=== PATIENT | female | born 2005 | race Caucasian/White ===

== ENCOUNTER 2023-01-06 22:57 | Observation (INO) | payer OTHER ==
[2023-01-07] MEDS ORDERED: hydrALAZINE 20 MG/ML VIAL SLOW IVP PRN (00:34)
[2023-01-07] MEDS ORDERED: Ventolin HFA Inhaler 60 PUFF INHALER INH PRN (00:40)
[2023-01-07 01:36] VITALS: BMI 41.6
[2023-01-07 06:45] LABS: Hemoglobin 12.9 g/dL (12.0-15.5); Mean Corpuscular HGB CONC 32.2 g/dL (32.0-36.0); Mean Corpuscular Hemoglobin 25.5 pg (27.0-33.0); Mean Corpuscular Volume 79.2 fl (81.6-98.3); Mean Platelet Volume 9.2 fl (7.4-10.4); Platelet Count 316 10x3/uL (150-450); RBC Distribution Width 15.4 % (11.5-14.5); Red Blood Cell (RBC) Count 5.06 10x6/uL (3.90-5.03); White Blood Cell (WBC) Count 9.6 10x3/uL (3.5-10.5)
[2023-01-07 07:37] VITALS: BP 131/71; TEMP 97.7
[2023-01-07] MEDS ORDERED: Simethicone Chewable 80 MG TAB PO PRN (09:37)
[2023-01-07 12:10] LABS: #Eosinphils 0.4 10x3/uL (0.0-0.5); #Monocytes 0.7 10x3/uL (0.0-1.1); #Neutrophils 4.7 10x3/uL (1.5-8.4); %Basophils 0.4 % (0.0-2.0); %Lymphocytes 28.9 % (18.0-47.0); %Monocytes 8.2 % (0.0-10.0); %Neutrophils 57.3 % (40.0-75.0); Hemoglobin 12.6 g/dL (12.0-15.5); Mean Corpuscular Hemoglobin 25.1 pg (27.0-33.0); Mean Corpuscular Volume 78.6 fl (81.6-98.3); Mean Platelet Volume 9.5 fl (7.4-10.4); Platelet Count 307 10x3/uL (150-450); RBC Distribution Width 15.2 % (11.5-14.5); Red Blood Cell (RBC) Count 5.01 10x6/uL (3.90-5.03); White Blood Cell (WBC) Count 8.2 10x3/uL (3.5-10.5)
== END 2023-01-07 13:07 | disposition home or self-care (01) ==
LOC: UNDOADMIN 23:57 → CSHPP 23:57 → INTOOBSV 01-07 00:34 → CSHPP 01-07 00:34
PROVIDERS: ADMIT Obstetrics & Gynecology; ATTEND Obstetrics & Gynecology
DX: O00.91 Unspecified ectopic pregnancy with intrauterine pregnancy (principal); O99.511 Diseases of the respiratory system complicating pregnancy, first trimester; J45.909 Unspecified asthma, uncomplicated; O9A.211 Injury, poisoning and certain other consequences of external causes complicating pregnancy, first trimester; S90.859A Superficial foreign body, unspecified foot, initial encounter; Z3A.08 8 weeks gestation of pregnancy; X58.XXXA Exposure to other specified factors, initial encounter
CPT/HCPCS: 36415; 76856; 80053; 81001; 83690; 84702; 84703; 85025; 85027; 87086; G0378

== ENCOUNTER 2023-04-24 04:27 | Inpatient (IN) | payer OTHER, SELFPAY ==
[2023-04-24] MEDS ORDERED: Acetaminophen 500 MG TAB ONE (04:48)
[2023-04-24 04:58] LABS: #Eosinphils 0.2 10x3/uL (0.0-0.5); #Neutrophils 13.4 10x3/uL (1.5-8.4); %Basophils 0.2 % (0.0-2.0); %Lymphocytes 8.1 % (18.0-47.0); %Monocytes 6.3 % (0.0-10.0); Hematocrit 40.5 % (34.9-44.5); Hemoglobin 13.1 g/dL (12.0-15.5); Mean Corpuscular HGB CONC 32.3 g/dL (32.0-36.0); Mean Corpuscular Hemoglobin 25.6 pg (27.0-33.0); Mean Corpuscular Volume 79.3 fl (81.6-98.3); Mean Platelet Volume 9.8 fl (7.4-10.4); Platelet Count 258 10x3/uL (150-450); RBC Distribution Width 13.2 % (11.5-14.5); Red Blood Cell (RBC) Count 5.11 10x6/uL (3.90-5.03); White Blood Cell (WBC) Count 15.9 10x3/uL (3.5-10.5)
[2023-04-24 05:05] LABS: BHCG - Serum Negative (NEGATIVE); Pregs Control Background? CLEAR/WHITE (CLR/WHITE); Pregs Control Bar Appear? YES (CONTROL BAR)
[2023-04-24] MEDS ORDERED: cefTRIAXone (ROCEPHIN) 1 GM VIAL ONE (05:08)
[2023-04-24 05:10] LABS: ALT (SGPT) 22 U/L (8-55); AST (SGOT) 20 U/L (5-34); Albumin 4.3 g/dL (3.5-5.0); Alkaline Phosphatase 62 U/L (40-100); Anion Gap 16 mmol/L (10-20); BUN (Urea Nitrogen) 11 mg/dL (7.0-18.7); Bilirubin, Total 0.7 mg/dL (0.2-1.2); Calc. Creatinine Clearance 0 mL/min (70-130); Calcium 8.6 mg/dL (7.8-10.44); Carbon Dioxide 22 mmol/L (22-29); Chloride 105 mmol/L (98-107); Estimated GFR 101; Globulin 2.8 g/dL (2.4-3.5); Glucose 132 mg/dL (70-105); Potassium 3.8 mmol/L (3.5-5.1); Protein, Total 7.1 g/dL (6.0-8.3); Sodium 139 mmol/L (136-145)
[2023-04-24 06:34] LABS: Bilirubin Neg (Negative); Blood, Urine 10 (Negative); Clarity Clear (Clear); Glucose, Urine (Dipstick) Normal (Negative); Ketone, Urine 5 mg/dL (Negative); Leukocyte Negative (Negative); Nitrite Negative (Negative); Protein, Urine (Dipstick) 15 mg/dl (Neg-Trace); Urobilinogen Normal mg/dL (Less than 2)
[2023-04-24 06:55] LABS: Bacteria/HPF None Seen HPF (None Seen); CAUTI Indications for Culture Fever or rigors; RBC/HPF 0-3 HPF (0-3); Squamous Epithelial 0-3 HPF (0-3); Urine Culture Reflex No No; WBC/HPF None Seen HPF (0-3)
[2023-04-24 07:09] LABS: SARS-CoV-2 NAA Rapid Test Not Detected (NotDetected)
[2023-04-24 07:53] LABS: Lactic Acid 3.4 mmol/L (0.5-2.2)
[2023-04-24] MEDS ORDERED: Ipratropium/Albuterol 3 ML NEB ONE ×5 (08:25→19:36)
[2023-04-24] MEDS ORDERED: Magnesium 2 GM/50 ML(in water) 2 GM in Premix Bag 1 BAG IVPB SCH (08:30)
[2023-04-24] MEDS ORDERED: Magnesium 2 GM/50 ML BAG (IN WATER) ONE (08:30)
[2023-04-24] MEDS ORDERED: Senokot S 8.6-50 MG TAB PO PRN (08:33)
[2023-04-24] MEDS ORDERED: Acetaminophen 325 MG TAB PO PRN (08:33)
[2023-04-24] MEDS ORDERED: Ipratropium/Albuterol 3 ML NEB NEB PRN ×4 (08:38→11:40)
[2023-04-24] MEDS ORDERED: methylPREDNISolone Sod Succ 40 MG VIAL ONE ×3 (08:43→21:02)
[2023-04-24] MEDS ORDERED: Ipratropium/Albuterol 3 ML NEB NEB SCH (09:00)
[2023-04-24] MEDS ORDERED: methylPREDNISolone Sod Succ/PF 125 MG/2 ML VIAL IVP SCH ×3 (09:00→09:15)
[2023-04-24] MEDS ORDERED: Azithromycin 250 MG TAB PO SCH (09:45)
[2023-04-24] MEDS: Sodium Chloride 0.9% 1,000 ML IV SCH ×3 (09:45→23:59)
[2023-04-24] MEDS: Ipratropium/Albuterol 3 ML NEB IPPB SCH ×4 (11:51→22:38)
[2023-04-24] MEDS ORDERED: Azithromycin 250 MG TAB ONE (13:22)
[2023-04-24] MEDS ORDERED: Sodium Chloride 0.9% 1,000 ML IV SCH (13:45)
[2023-04-24 15:46] LABS: Lactic Acid 5.1 mmol/L (0.5-2.2)
[2023-04-24] MEDS: Mometasone 100 MCG/PUFF (1 INHALER) INH SCH (19:30)
[2023-04-24] MEDS: methylPREDNISolone Sod Succ 40 MG VIAL IVP SCH ×2 (21:07→21:08)
[2023-04-24] MEDS ORDERED: FLU VACC QS2023-24(6MOS UP)/PF 60 MCG/0.5 ML SYRINGE IM ONE (21:30)
[2023-04-24 22:53] VITALS: BMI 39.1
[2023-04-24 23:13] LABS: Lactic Acid 1.7 mmol/L (0.5-2.2)
[2023-04-25] MEDS: Ipratropium/Albuterol 3 ML NEB IPPB SCH ×4 (02:37→14:52)
[2023-04-25 04:19] LABS: #Monocytes 0.5 10x3/uL (0.0-1.1); %Basophils 0.1 % (0.0-2.0); %Lymphocytes 5.6 % (18.0-47.0); %Monocytes 3.9 % (0.0-10.0); %Neutrophils 88.9 % (40.0-75.0); Hematocrit 37.1 % (34.9-44.5); Hemoglobin 11.8 g/dL (12.0-15.5); Mean Corpuscular HGB CONC 31.8 g/dL (32.0-36.0); Mean Corpuscular Hemoglobin 25.1 pg (27.0-33.0); Mean Corpuscular Volume 78.8 fl (81.6-98.3); Mean Platelet Volume 9.9 fl (7.4-10.4); Platelet Count 283 10x3/uL (150-450); RBC Distribution Width 13.6 % (11.5-14.5); Red Blood Cell (RBC) Count 4.71 10x6/uL (3.90-5.03); White Blood Cell (WBC) Count 13.5 10x3/uL (3.5-10.5)
[2023-04-25 04:40] LABS: Anion Gap 13 mmol/L (10-20); BUN (Urea Nitrogen) 10 mg/dL (7.0-18.7); Calc. Creatinine Clearance 237 mL/min (70-130); Calcium 8.7 mg/dL (7.8-10.44); Carbon Dioxide 19 mmol/L (22-29); Chloride 112 mmol/L (98-107); Estimated GFR 127; Glucose 180 mg/dL (70-105); Potassium 4.2 mmol/L (3.5-5.1); Sodium 140 mmol/L (136-145)
[2023-04-25] MEDS ORDERED: cefTRIAXone\\ROCEPHIN 1 GM in Sodium Chloride 0.9% 100 ML IVPB SCH (05:00)
[2023-04-25] MEDS: Mometasone 100 MCG/PUFF (1 INHALER) INH SCH (07:05)
[2023-04-25] MEDS ORDERED: predniSONE 20 MG TAB PO SCH ×2 (08:00→13:00)
[2023-04-25] MEDS ORDERED: Azithromycin 250 MG TAB PO SCH (09:00)
[2023-04-25 16:28] VITALS: BP 119/63; TEMP 97.8
[2023-04-26] MEDS ORDERED: predniSONE 20 MG TAB PO SCH (08:00)
== END 2023-04-25 18:41 | disposition home or self-care (01) | DRG 871 ==
LOC: CSHERS 04:27 → SUATTDRO 04:27 → CSHERHOLD 06:46 → CSHTELE 22:52
PROVIDERS: ADMIT Hospitalist; ATTEND Hospitalist
DX: A41.9 Sepsis, unspecified organism (principal); J18.9 Pneumonia, unspecified organism; J96.01 Acute respiratory failure with hypoxia; J45.901 Unspecified asthma with (acute) exacerbation; Z20.822 Contact with and (suspected) exposure to COVID-19; F41.9 Anxiety disorder, unspecified; F12.90 Cannabis use, unspecified, uncomplicated; F17.210 Nicotine dependence, cigarettes, uncomplicated; Z71.6 Tobacco abuse counseling; Z79.899 Other long term (current) drug therapy; Z98.890 Other specified postprocedural states
CPT/HCPCS: 36415; 71045; 80048; 80053; 81001; 83605; 84703; 85025; 87040; 87807; 93005; 94640; 94664; 94760; 94762; J0696; J0744; J1650; J2920; J2930; J3475; J3490; J7050; J7512; J7620

== ENCOUNTER 2023-08-09 14:50 | Emergency (ER) | payer MEDICAID, SELFPAY ==
[2023-08-09 16:05] LABS: #Eosinphils 0.3 10x3/uL (0.0-0.5); #Monocytes 0.6 10x3/uL (0.0-1.1); #Neutrophils 7.3 10x3/uL (1.5-8.4); %Basophils 0.3 % (0.0-2.0); %Eosinophils 3.4 % (0.0-6.0); %Lymphocytes 10.1 % (18.0-47.0); %Monocytes 6.7 % (0.0-10.0); Hematocrit 39.1 % (34.9-44.5); Mean Corpuscular HGB CONC 33.2 g/dL (32.0-36.0); Mean Corpuscular Hemoglobin 25.9 pg (27.0-33.0); Mean Corpuscular Volume 77.9 fl (81.6-98.3); Mean Platelet Volume 9.5 fl (7.4-10.4); Platelet Count 230 10x3/uL (150-450); RBC Distribution Width 15.2 % (11.5-14.5); Red Blood Cell (RBC) Count 5.02 10x6/uL (3.90-5.03); White Blood Cell (WBC) Count 9.3 10x3/uL (3.5-10.5)
[2023-08-09 16:08] LABS: Bilirubin Neg (Negative); Blood, Urine 10 (Negative); Clarity Slightly Cloudy (Clear); Glucose, Urine (Dipstick) Normal (Negative); Ketone, Urine 15 mg/dL (Negative); Leukocyte 25 (Negative); Nitrite Negative (Negative); Protein, Urine (Dipstick) 15 mg/dl (Neg-Trace); Specific Gravity, Urine 1.015 (1.005-1.030); Urobilinogen Normal mg/dL (Less than 2)
[2023-08-09 16:09] LABS: Pregnancy Test - Urine (BHCG) POSITIVE (Negative); Pregu Control Background? CLEAR/WHITE (CLR/WHITE); Pregu Control Bar Appear? YES (CONTROL BAR); Specific Gravity 1.015 (1.002-1.036)
[2023-08-09 16:22] LABS: Bacteria/HPF 2+ HPF (None Seen); CAUTI Indications for Culture Pelvic or flank pain; RBC/HPF None Seen HPF (0-3)
[2023-08-09 16:23] LABS: Urine Culture Reflex No No
[2023-08-09 16:24] LABS: ALT (SGPT) 15 U/L (8-55); AST (SGOT) 11 U/L (5-34); Alkaline Phosphatase 46 U/L (40-100); Anion Gap 16 mmol/L (10-20); BUN (Urea Nitrogen) 5 mg/dL (7.0-18.7); Bilirubin, Total 0.5 mg/dL (0.2-1.2); Calc. Creatinine Clearance 0 mL/min (70-130); Calcium 9.1 mg/dL (7.8-10.44); Carbon Dioxide 19 mmol/L (22-29); Chloride 106 mmol/L (98-107); Estimated GFR 128; Globulin 3.2 g/dL (2.4-3.5); Glucose 86 mg/dL (70-105); Lipase 6 U/L (8-78); Potassium 3.8 mmol/L (3.5-5.1); Protein, Total 7.2 g/dL (6.0-8.3); Sodium 137 mmol/L (136-145)
[2023-08-09 16:29] LABS: SARS-CoV-2 NAA Rapid Test Not Detected (NotDetected)
[2023-08-09] MEDS ORDERED: Ipratropium/Albuterol 3 ML NEB ONE (17:47)
[2023-08-09] MEDS ORDERED: predniSONE 20 MG TAB ONE (17:47)
[2023-08-09] MEDS ORDERED: Magnesium 2 GM/50 ML BAG (IN WATER) ONE (17:47)
== END 2023-08-09 19:36 | disposition home or self-care (01) ==
LOC: CSHERS 14:50
DX: O99.52 Diseases of the respiratory system complicating childbirth (principal); J45.901 Unspecified asthma with (acute) exacerbation; Z3A.14 14 weeks gestation of pregnancy
CPT/HCPCS: 36415; 71045; 76815; 80053; 81001; 81025; 83690; 85025; 87086; 93005; 96374; J3475; J7512; J7620

== ENCOUNTER 2023-09-13 09:10 | Outpatient (CLI) | payer MEDICAID | END 2023-09-13 09:11 | disposition home or self-care (01) | LOC: CSHULT 09:10 | PROVIDERS: ATTEND Family Medicine | DX: Z34.82 Encounter for supervision of other normal pregnancy, second trimester (principal); Z3A.19 19 weeks gestation of pregnancy | CPT/HCPCS: 76805 ==

== ENCOUNTER 2023-10-05 14:45 | Day surgery (SDC) | payer MEDICAID ==
[2023-10-05 16:47] LABS: Bilirubin Neg (Negative); Blood, Urine Negative (Negative); Clarity Slightly Cloudy (Clear); Glucose, Urine (Dipstick) Normal (Negative); Ketone, Urine Negative (Negative); Leukocyte Negative (Negative); Nitrite Negative (Negative); Protein, Urine (Dipstick) Negative (Neg-Trace); Specific Gravity, Urine 1.015 (1.005-1.030); Urobilinogen Normal mg/dL (Less than 2)
[2023-10-05 17:50] LABS: Bacteria/HPF Rare-Few HPF (None Seen); CAUTI Indications for Culture Pregnancy; RBC/HPF 0-3 HPF (0-3); Squamous Epithelial 0-3 HPF (0-3); Transitional Epithelial 0-3 HPF (None Seen); WBC/HPF 0-3 HPF (0-3)
[2023-10-05 17:51] LABS: Urine Culture Reflex Yes Yes
== END 2023-10-05 16:15 | disposition home health service (06) ==
LOC: CSHLD/OP 14:45
PROVIDERS: ATTEND Family Medicine
DX: O36.8120 Decreased fetal movements, second trimester, not applicable or unspecified (principal); O24.419 Gestational diabetes mellitus in pregnancy, unspecified control; O99.891 Other specified diseases and conditions complicating pregnancy; R35.0 Frequency of micturition; O99.512 Diseases of the respiratory system complicating pregnancy, second trimester; J45.909 Unspecified asthma, uncomplicated; Z3A.22 22 weeks gestation of pregnancy
CPT/HCPCS: 36416; 81001; 87086; 99282

== ENCOUNTER 2023-11-20 05:05 | Day surgery (SDC) | payer MEDICAID ==
[2023-11-20 05:34] VITALS: BMI 41.3
[2023-11-20 07:09] LABS: Bilirubin Neg (Negative); Blood, Urine Negative (Negative); Clarity Clear (Clear); Glucose, Urine (Dipstick) Normal (Negative); Ketone, Urine Negative (Negative); Leukocyte Negative (Negative); Nitrite Negative (Negative); Protein, Urine (Dipstick) Negative (Neg-Trace); Urobilinogen Normal mg/dL (Less than 2)
[2023-11-20 07:19] LABS: Bacteria/HPF None Seen HPF (None Seen); CAUTI Indications for Culture Pregnancy; RBC/HPF None Seen HPF (0-3); Squamous Epithelial 0-3 HPF (0-3); WBC/HPF None Seen HPF (0-3)
[2023-11-20 07:20] LABS: Urine Culture Reflex Yes Yes
== END 2023-11-20 07:53 | disposition home or self-care (01) ==
LOC: CSHLD/OP 05:05
PROVIDERS: ATTEND Family Medicine
DX: O36.8130 Decreased fetal movements, third trimester, not applicable or unspecified (principal); O24.419 Gestational diabetes mellitus in pregnancy, unspecified control; Z79.82 Long term (current) use of aspirin; Z79.899 Other long term (current) drug therapy; Z91.018 Allergy to other foods; Z3A.28 28 weeks gestation of pregnancy
CPT/HCPCS: 36416; 81001; 87086; 96360; 99283

== ENCOUNTER 2023-12-16 09:57 | Day surgery (SDC) | payer MEDICAID ==
[2023-12-16 10:25] VITALS: BMI 41.9
== END 2023-12-16 11:53 | disposition home or self-care (01) ==
LOC: CSHLD/OP 09:57
PROVIDERS: ATTEND Family Medicine
DX: Z36.89 Encounter for other specified antenatal screening (principal); O99.213 Obesity complicating pregnancy, third trimester; E66.01 Morbid (severe) obesity due to excess calories; O26.643 Intrahepatic cholestasis of pregnancy, third trimester; K83.1 Obstruction of bile duct; O24.410 Gestational diabetes mellitus in pregnancy, diet controlled; O99.343 Other mental disorders complicating pregnancy, third trimester; F31.9 Bipolar disorder, unspecified; Z79.899 Other long term (current) drug therapy; Z3A.34 34 weeks gestation of pregnancy
CPT/HCPCS: 36416; 76819; 99283

== ENCOUNTER 2023-12-26 15:28 | Day surgery (SDC) | payer MEDICAID ==
[2023-12-26 15:34] VITALS: BMI 42.3
== END 2023-12-26 17:03 | disposition home health service (06) ==
LOC: CSHLD/OP 15:28
PROVIDERS: ATTEND Family Medicine
DX: O26.643 Intrahepatic cholestasis of pregnancy, third trimester (principal); Z3A.34 34 weeks gestation of pregnancy
CPT/HCPCS: 76819

== ENCOUNTER 2024-01-06 17:50 | Inpatient (IN) | payer MEDICAID ==
[2024-01-06] MEDS ORDERED: Ibuprofen 800 MG TAB PO PRN (18:44)
[2024-01-06] MEDS ORDERED: Ondansetron PF 4 MG/2 ML Vial IVP PRN (18:44)
[2024-01-06] MEDS ORDERED: hydrALAZINE 20 MG/ML VIAL SLOW IVP PRN (18:44)
[2024-01-06] MEDS ORDERED: Lidocaine 1% (PF) 30 ML VIAL SC PRN (18:44)
[2024-01-06] MEDS ORDERED: Tranexamic Acid 1,000 MG/10 ML VIAL IVP PRN (18:44)
[2024-01-06] MEDS ORDERED: Misoprostol 200 MCG TAB PR PRN (18:44)
[2024-01-06] MEDS ORDERED: Methylergonovine 0.2 MG/ML VIAL IM PRN (18:44)
[2024-01-06] MEDS ORDERED: Acetaminophen 500 MG TAB PO PRN (18:44)
[2024-01-06] MEDS ORDERED: HYDROcodone/Acetaminophen 5/325 mg Tablet PO PRN (18:44)
[2024-01-06] MEDS ORDERED: Carboprost 250 MCG/ML AMP IM PRN (18:44)
[2024-01-06] MEDS ORDERED: Promethazine HCl 25 MG/ML VIAL IM PRN (18:44)
[2024-01-06] MEDS ORDERED: Diphenoxylate HCl/Atropine Tablet PO PRN (18:44)
[2024-01-06] MEDS ORDERED: Oxytocin 30 units/NS 500 ML 500 ML IV SCH ×2 (18:45)
[2024-01-06] MEDS: Lactated Ringer's 1,000 ML IV SCH (19:45)
[2024-01-06 20:01] LABS: Hematocrit 33.2 % (34.9-44.5); Hemoglobin 11.1 g/dL (12.0-15.5); Mean Corpuscular HGB CONC 33.4 g/dL (32.0-36.0); Mean Corpuscular Hemoglobin 26.1 pg (27.0-33.0); Mean Corpuscular Volume 77.9 fL (81.6-98.3); Mean Platelet Volume 10.5 fL (7.4-10.4); Platelet Count 264 10x3/uL (150-450); RBC Distribution Width 13.1 % (11.5-14.5); Red Blood Cell (RBC) Count 4.26 10x6/uL (3.90-5.03); White Blood Cell (WBC) Count 10.7 10x3/uL (3.5-10.5)
[2024-01-06] MEDS: Misoprostol 100 MCG TAB VAG SCH (20:11)
[2024-01-06 20:52] LABS: Syphilis Antibody Nonreactive (Nonreactive); Syphilis Antibody Index 0.07 S/CO (<1.00 Non-Reactive)
[2024-01-06 20:54] LABS: HBsAg Index 0.15 S/CO (0-0.99); Hep B Surf Ag - L&D Non-Reactive S/CO (NonReactive)
[2024-01-06 22:38] VITALS: BMI 41.5
[2024-01-07] MEDS: fentaNYL 50 mcg/mL 1 mL Vial SLOW IVP PRN (01:02)
[2024-01-07] MEDS: Misoprostol 100 MCG TAB VAG SCH (04:13)
[2024-01-07] MEDS: fentaNYL/Ropivacaine Epidural 100 ML ONE (05:32)
[2024-01-07] MEDS: Oxytocin 30 units/NS 500 ML 500 ML IV SCH (08:33)
[2024-01-07 21:16] LABS: Analyzer IN Cardio CS NICU; RapidComm Collect By RN; pH (Cord, venous) 7.338 (7.250-7.350)
[2024-01-07 21:18] LABS: Analyzer IN Cardio CS NICU; RapidComm Collect By RN
[2024-01-07] MEDS ORDERED: Lanolin Ointment 7 GM TUBE TOP PRN (23:36)
[2024-01-07] MEDS ORDERED: Bisacodyl 10 MG SUPP PR PRN (23:36)
[2024-01-07] MEDS ORDERED: Benzocaine-Menthol 82.5 ML CAN TOP PRN (23:36)
[2024-01-07] MEDS ORDERED: Milk Of Magnesia 30 ML UDCUP PO PRN (23:36)
[2024-01-07] MEDS ORDERED: Promethazine HCl 25 MG/ML VIAL IM PRN (23:36)
[2024-01-07] MEDS ORDERED: Ondansetron PF 4 MG/2 ML Vial IVP PRN (23:36)
[2024-01-07] MEDS ORDERED: diphenhydrAMINE 25 MG CAP PO PRN (23:36)
[2024-01-07] MEDS ORDERED: hydrALAZINE 20 MG/ML VIAL SLOW IVP PRN (23:36)
[2024-01-08] MEDS: Ibuprofen 800 MG TAB PO SCH ×2 (03:00→22:12)
[2024-01-08] MEDS: HYDROcodone/Acetaminophen 5/325 mg Tablet PO PRN (05:53)
[2024-01-08] MEDS ORDERED: Ibuprofen 800 MG TAB PO SCH (06:00)
[2024-01-08] MEDS: Boostrix 0.5 ML (Tdap) VIAL (>/=7 yrs of age) IM ONE (07:50)
[2024-01-08] MEDS: Docusate 100 MG CAP PO SCH (07:51)
[2024-01-08] MEDS: Prenatal Vitamin 1 TAB PO SCH (07:51)
[2024-01-08] MEDS: Ferrous Sulfate 325 MG TAB PO SCH (07:51)
[2024-01-08] MEDS: fentaNYL/Ropivacaine Epidural 100 ML ONE (07:57)
[2024-01-08] MEDS: Dexmedetomidine 200 MCG/2 ML VIAL ONE (07:57)
[2024-01-09] MEDS: Terbinafine 250 MG TAB PO SCH (09:10)
[2024-01-09 19:54] VITALS: BP 137/83; TEMP 98.2
== END 2024-01-09 20:12 | disposition home or self-care (01) | DRG 806 ==
LOC: CSHLD 17:50 → EEVIPCON 17:50 → CSHPP 01-08 01:55
PROVIDERS: ADMIT Family Medicine; ATTEND Family Medicine
PROC: 10D07Z6 Extraction of Products of Conception, Vacuum, Via Natural or Artificial Opening (ICD-10-PCS; principal; 2024-01-07)
PROC: 10907ZC Drainage of Amniotic Fluid, Therapeutic from Products of Conception, Via Natural or Artificial Opening (ICD-10-PCS; 2024-01-07)
PROC: 0UQMXZZ Repair Vulva, External Approach (ICD-10-PCS; 2024-01-07)
DX: O24.429 Gestational diabetes mellitus in childbirth, unspecified control (principal); O26.643 Intrahepatic cholestasis of pregnancy, third trimester; Z37.0 Single live birth; Z3A.37 37 weeks gestation of pregnancy; O99.214 Obesity complicating childbirth; E66.9 Obesity, unspecified; O71.82 Other specified trauma to perineum and vulva; E78.79 Other disorders of bile acid and cholesterol metabolism; K76.89 Other specified diseases of liver
CPT/HCPCS: 36415; 36416; 82805; 85027; 86780; 86850; 86900; 86901; 87340; 93005; 93010; J2590; J3010; J7120

== ENCOUNTER 2024-07-18 02:41 | Emergency (ER) | payer MEDICAID ==
[2024-07-18] MEDS ORDERED: Acetaminophen 325 MG TAB ONE (02:51)
[2024-07-18 09:38] LABS: #Basophils 0.01 10x3/uL (0.0-0.2); #Eosinophils 0.02 10x3/uL (0.0-0.5); #Monocytes 0.65 10x3/uL (0.0-1.1); #Neutrophils 6.38 10x3/uL (1.5-8.4); %Basophils 0.1 % (0.0-2.0); %Eosinophils 0.3 % (0.0-6.0); %Monocytes 8.9 % (0.0-10.0); %Neutrophils 87.4 % (40.0-75.0); Hematocrit 33.8 % (34.9-44.5); Hemoglobin 10.6 g/dL (12.0-15.5); Mean Corpuscular HGB CONC 31.4 g/dL (32.0-36.0); Mean Corpuscular Hemoglobin 25.2 pg (27.0-33.0); Mean Corpuscular Volume 80.3 fL (81.6-98.3); Mean Platelet Volume 10.3 fL (7.4-10.4); Platelet Count 195 10x3/uL (150-450); RBC Distribution Width 14.4 % (11.5-14.5); Red Blood Cell (RBC) Count 4.21 10x6/uL (3.90-5.03); White Blood Cell (WBC) Count 7.3 10x3/uL (3.5-10.5)
[2024-07-18 09:39] LABS: Carbon Dioxide 20 mmol/L (22-29); Chloride 107 mmol/L (98-107); Potassium 3.7 mmol/L (3.5-5.1); Sodium 136 mmol/L (136-145)
[2024-07-18 09:41] LABS: Anion Gap 13 mmol/L (10-20); BUN (Urea Nitrogen) 6 mg/dL (7.0-18.7); Calc. Creatinine Clearance 0 mL/min (70-130); Estimated GFR 6; Glucose 102 mg/dL (70-105)
[2024-07-18 09:42] LABS: ALT (SGPT) 14 U/L (8-55); AST (SGOT) 16 U/L (5-34); Albumin 2.9 g/dL (3.5-5.0); Alkaline Phosphatase 47 U/L (40-110); Bilirubin, Total 0.4 mg/dL (0.2-1.2); Calcium 8.3 mg/dL (7.6-10.4); Globulin 3.5 g/dL (2.4-3.5); Lipase 6 U/L (8-78); Protein, Total 6.4 g/dL (6.0-8.3)
[2024-07-18 09:43] LABS: Magnesium 1.5 mg/dL (1.6-2.6)
[2024-07-18 10:23] LABS: Bilirubin Negative (Negative); Blood, Urine Negative (Negative); Clarity Clear (Clear); Glucose, Urine (Dipstick) Normal (Negative); Ketone, Urine 50 mg/dL (Negative); Leukocyte Negative (Negative); Nitrite Negative (Negative); Protein, Urine (Dipstick) 30 mg/dl (Neg-Trace)
[2024-07-18 10:24] LABS: Bacteria/HPF 1+ HPF (None Seen); Mucous/LPF 1+ LPF (<2+); RBC/HPF 0-3 HPF (0-3); WBC/HPF 0-3 HPF (0-3)
[2024-07-20 11:28] LABS: CAUTI Indications for Culture Pregnancy
[2024-07-20 11:30] LABS: Urine Culture Reflex Yes Yes
== END 2024-07-18 05:41 | disposition home or self-care (01) ==
LOC: CSHERS 02:41
DX: O99.891 Other specified diseases and conditions complicating pregnancy (principal); O99.332 Smoking (tobacco) complicating pregnancy, second trimester; R82.71 Bacteriuria; J11.1 Influenza due to unidentified influenza virus with other respiratory manifestations; F17.290 Nicotine dependence, other tobacco product, uncomplicated; Z3A.23 23 weeks gestation of pregnancy
CPT/HCPCS: 80053; 81001; 83690; 83735; 85025; 87086; 87428; 96360

== ENCOUNTER 2024-08-20 13:23 | Day surgery (SDC) | payer MEDICAID ==
[2024-08-20] MEDS ORDERED: hydrALAZINE 20 MG/ML VIAL SLOW IVP PRN (13:48)
[2024-08-20 14:09] VITALS: BMI 43.4
[2024-08-20 15:09] LABS: Bilirubin Neg (Negative); Blood, Urine Negative (Negative); Clarity Clear (Clear); Glucose, Urine (Dipstick) Normal (Negative); Ketone, Urine Negative (Negative); Leukocyte Negative (Negative); Nitrite Negative (Negative); Protein, Urine (Dipstick) Negative (Neg-Trace); Specific Gravity, Urine 1.015 (1.005-1.030); Urobilinogen Normal mg/dL (Less than 2)
== END 2024-08-20 16:15 | disposition home health service, planned readmission (86) ==
LOC: CSHLD/OP 13:23
PROVIDERS: ATTEND Family Medicine
DX: O99.891 Other specified diseases and conditions complicating pregnancy (principal); R10.2 Pelvic and perineal pain; O24.419 Gestational diabetes mellitus in pregnancy, unspecified control; O99.513 Diseases of the respiratory system complicating pregnancy, third trimester; J45.909 Unspecified asthma, uncomplicated; Z91.018 Allergy to other foods; Z79.899 Other long term (current) drug therapy; Z3A.28 28 weeks gestation of pregnancy
CPT/HCPCS: 76815; 81003; 99282